=== PATIENT | female | born 1965 | race Caucasian/White ===

== ENCOUNTER 2021-11-19 10:45 | Observation (INO) ==
[2021-11-19] MEDS ORDERED: Iopamidol - 370 500 ML MLS IVP ONE (10:51)
[2021-11-19 11:22] LABS: Hematocrit 36.8 % (35.3-44.9); Hemoglobin 12.2 g/dL (11.5-15.4); Mean Corpuscular HGB Conc 33.2 g/dL (31.6-35.5); Mean Corpuscular Hemoglobin 28.5 pg (28.0-33.3); Platelet Count 251 K/mcL (140-400); Red Blood Count 4.28 M/mcL (3.82-4.97); Red Cell Distribution Width 12.7 % (11.5-14.5)
[2021-11-19] MEDS: Aspirin 81 MG TAB.CHEW PO SCH ×2 (11:28→13:50)
[2021-11-19 11:35] LABS: INR 1.2; Prothrombin Time 12.9 Seconds (9.4-12.1)
[2021-11-19 11:43] LABS: BUN/Creatinine Ratio 17 (6-26); Blood Urea Nitrogen 17 mg/dL (6-20); Carbon Dioxide 26 mEq/L (23-29); Chloride 108 mEq/L (98-107); Glucose 85 mg/dL (70-105); Osmolality,Calculated 291 (280-300); Potassium 3.2 mEq/L (3.5-5.1); Sodium 140 mEq/L (136-145); Troponin I < 0.03 ng/mL (< 0.04); eGFR For African Americans > 60 (> 60); eGFR For Non-African Americans 55 (> 60)
[2021-11-19] MEDS ORDERED: Potassium Effervescent 25 MEQ TABLET.EFF PO ONE (11:54)
[2021-11-19] MEDS ORDERED: Ondansetron 4 MG/2 ML VIAL IVP PRN (11:59)
[2021-11-19] MEDS ORDERED: Naloxone 0.4 MG/ML INJ IVP PRN (11:59)
[2021-11-19] MEDS ORDERED: Perflutren Lipid Microsphere 1.3 ML in 0.9 % Sodium Chloride 8.7 ML IVP PRN (12:59)
[2021-11-19 14:10] LABS: Bilirubin,Urine Negative (Negative); Blood,Urine Negative (Negative); Clarity,Urine Clear (Clear); Color,Urine Light-Yellow (Yellow); Glucose,Urine (UA) Normal (Normal); Ketones,Urine Negative (Negative); Leukocyte Esterase,Urine Negative (Negative); Nitrite,Urine Negative (Negative); PH,Urine 6.5 pH Units (5.0-8.0); Protein,Urine Negative (Neg-Trace); Specific Gravity,Urine > 1.030 (1.010-1.025); Urobilinogen,Urine Normal (Normal)
[2021-11-19] MEDS ORDERED: 0.9 % Sodium Chloride 1,000 ML IV ONE (15:48)
[2021-11-19] MEDS ORDERED: *HR* LORazepam 2 MG/ML VIAL IVP PRN (17:41)
[2021-11-19] MEDS: traZODone 50 MG TABLET PO SCH (20:24)
[2021-11-19] MEDS: BuPROPion SR (12 HR) 150 MG TABLET PO SCH (20:24)
[2021-11-20] MEDS ORDERED: tiZANidine 4 MG TABLET PO ONE ×2 (00:25→23:36)
[2021-11-20 04:31] LABS: Estimated Average Glucose 94 mg/dl; Hemoglobin A1C 4.9 %
[2021-11-20 04:39] LABS: INR 1.1; Prothrombin Time 12.4 Seconds (9.4-12.1)
[2021-11-20 04:45] LABS: BUN/Creatinine Ratio 16 (6-26); Blood Urea Nitrogen 12 mg/dL (6-20); Calcium 8.8 mg/dL (8.6-10.3); Carbon Dioxide 26 mEq/L (23-29); Chloride 111 mEq/L (98-107); Chol/HDL Ratio 2.4 (0-4.9); Cholesterol 100 mg/dL (< 200); Glucose 93 mg/dL (70-105); HDL Cholesterol 41 mg/dL (40-59); LDL Cholesterol,Calculated 46 mg/dL (< 100); Osmolality,Calculated 291 (280-300); Potassium 3.6 mEq/L (3.5-5.1); Sodium 141 mEq/L (136-145); Triglycerides 67 mg/dL (< 150); eGFR For African Americans > 60 (> 60); eGFR For Non-African Americans > 60 (> 60)
[2021-11-20] MEDS: *HR* Enoxaparin 40 MG/0.4 ML SYRINGE SQ SCH (05:38)
[2021-11-20] MEDS: BuPROPion SR (12 HR) 150 MG TABLET PO SCH ×2 (09:14→20:51)
[2021-11-20] MEDS: Aspirin 81 MG TAB.CHEW PO SCH ×2 (09:45→09:47)
[2021-11-20] MEDS: Propranolol LA (24 HR) 60 MG CAP.SA.24H PO SCH (09:47)
[2021-11-20] MEDS ORDERED: *HR* LORazepam 2 MG/ML VIAL IVP ONE (19:35)
[2021-11-20] MEDS: traZODone 50 MG TABLET PO SCH (20:51)
[2021-11-21] MEDS: *HR* Enoxaparin 40 MG/0.4 ML SYRINGE SQ SCH (06:06)
[2021-11-21 07:19] VITALS: BP 134/88; PULSE 70; TEMP 97.8; O2SAT 98
[2021-11-21 09:03] LABS: Folate > 22.3 ng/mL (3.0-16.0); Vitamin B12 319 pg/mL (250-1100)
[2021-11-21] MEDS: Aspirin 81 MG TAB.CHEW PO SCH (09:07)
[2021-11-21] MEDS: Propranolol LA (24 HR) 60 MG CAP.SA.24H PO SCH (09:08)
[2021-11-21] MEDS: BuPROPion SR (12 HR) 150 MG TABLET PO SCH (09:08)
== END 2021-11-21 10:25 | disposition home or self-care (01) ==
LOC: 3BNU 10:45 → EMEROOARM 10:45 → SUATTDRO 12:06 → 3BNU 13:19
PROVIDERS: ADMIT Student in an Organized Health Care Education/Training Program; ATTEND Nurse Practitioner